=== PATIENT | female | born 1965 | race Caucasian/White ===

== ENCOUNTER 2020-11-04 10:06 | Day surgery (SDC) | payer OTHER ==
[~2020-11-04] VITALS: Ht 160 cm; Wt 119.7 kg
[~2020-11-04 10:06] MED LIST: DIVIGEL TOP; HYDROCHLOROTHIA25 M2 PO; SERTRALINE HCL50 MG PO; VITAMIN B122500 MC1 PO; VITAMIN D350 MC3 PO
[2020-11-04 10:47] VITALS: BP 133/73
--- NOTE | 2020-11-05 07:05 | EKG ---
[address] [place] [address] ELECTROCARDIOGRAM REPORT Name: JULIENNE DELEON Room #: DEP [facility]#: [id number] Admission: 11/04/20 Attend Phys: Estuardo Siegel MD Discharge: 11/04/20 Date of : 65 Report #: [id number] [facility] Test Date: 2020-11-04 Test Time: 10:45:12 Pat Name: JULIENNE DELEON Department: Room: 150 4 Gender: F Insurance Billing Clerk: WILLIAM : 1965 Requested By: Estuardo Siegel Order Number: [id number] : Rajesh Briseno Measurements Intervals [place] Rate: 82 P: 62 TX: 136 QRS: 15 QRSD: 95 T: -17 QT: 398 QTc: 465 Interpretive Statements Sinus rhythm Abnormal R-wave progression, early transition Borderline repolarization abnormality No previous ECG available for comparison Electronically Signed On 11-05-2020 7:05:24 CAR RENTAL DELIVER[employer] by Rajesh Briseno [email or web address] <ELECTRONICALLY SIGNED> By: Rajesh Briseno MD, [facility] 11/05/20 0705 1045 1045 Rajesh Briseno MD, FACC /EPI
--- NOTE | 2020-11-08 06:18 | O ---
[facility] [place] [address] OPERATIVE REPORT Name: JULIENNE DELEON Room #: DEP [facility]..#: [id number] Admission: 11/04/20 Attend Phys: Estuardo Siegel MD Discharge: 11/04/20 Date of : 65 Report #: [id number] THIS REPORT FOR: cc: Jhon Man MD, Elmer H. MD White, William L. MD ~ DATE OF SERVICE: 11/04/2020 PREOPERATIVE DIAGNOSIS: Tumor of left lower lid lateral canthus and cheek. POSTOPERATIVE DIAGNOSES: Tumor of left lower lid lateral canthus and cheek, pigmented basal cell carcinoma. PROCEDURES: Excision of lesion of left lower lid lateral canthus and cheek with frozen sections and myocutaneous flap repair of defect. SURGEON: Estuardo Siegel MD. SEBD TEACHER: None. ANESTHESIA: MAC. COMPLICATIONS: None. INDICATIONS FOR SURGERY: This pleasant 55-year-old woman has a pigmented nodular lesion in her lateral left lower lid extending on to her cheek and lateral canthus that appears to be a basal cell carcinoma. She presents today for excision of this lesion with frozen sections and subsequent repair of the ensuing defect. Informed consent was obtained to include but not limited to the potential risk for loss of vision, bleeding, infection, failure to improve the problem, the potential need for further surgery or treatment. DESCRIPTION OF PROCEDURE: The patient was taken to the operating room where 2% Xylocaine with epinephrine mixed with equal parts 0.75% Marcaine with Wydase was administered transcutaneously and transconjunctivally to the left lower lid lateral canthus and the cheek. The patient was subsequently prepped and draped in the usual sterile fashion. A fine tip skin marking pen was then utilized to outline the lesion including 1-2 mm of normal-appearing tissue. The incisions were then made with a 15 blade and subsequently completed with a Kirk scissor deep. They were directly overlying the facial nerve. The specimen was then oriented on drawing for the waiting pathologist as hemostasis was achieved in the field with diligent pinpoint monopolar cautery. The pathologist snap froze that tissue and found that the lesion was indeed a basal cell carcinoma, but that the margins were still positive. She felt that there was still tumor left medially. [address] [address] OPERATIVE REPORT Name: LEYDIVICKYJULIENNE Room #: DEP [facility]..#: [id number] Admission: 11/04/20 Attend Phys: Estuardo Siegel MD Discharge: 11/04/20 Date of : 65 Report #: [id number] An additional ellipse of tissue was taken excising the entire portion of the wound that she had indicated was positive, which was the medial aspect of the wound. The specimen was oriented for her on a drawing. Hemostasis was re-achieved. She snap froze that tissue and analyzed the new margins finding that now the margin was clear. A myocutaneous flap was then developed laterally to be rotated and medially to correct the defect. Hemostasis was then re-achieved. The flap was then advanced and secured with multiple interrupted 6-0 plain gut sutures. The wound was then cleaned and dressed with erythromycin ophthalmic ointment. The patient subsequently transported to the recovery area having tolerated the procedures well with no anesthetic or operative complications being noted. <ELECTRONICALLY SIGNED> By: Estuardo Siegel MD 11/08/20 0618 1255 1305 Estuardo Siegel MD /nt
--- NOTE | 2020-11-08 19:06 | PATH ---
[facility] [place] [address] PATHOLOGY RPT PROCEDURE Name: JULIENNE DELEON Room #: DEP [facility]..#: [id number] Admission: 11/04/20 Date of : 65 Discharge: 11/04/20 Report #: [id number] Path Case #: [id number] [facility] Accession Number: [id number] . 01 Material submitted: . PART A: lid - LEFT LOWER LID LESION FROZEN SECTION. Modifiers: left, lower PART B: lid - LEFT LOWER LID ADDITIONAL MEDIAL MARGIN FROZEN SECTION. Modifiers: left, lower, medial . 01 Clinician provided ICD-10: C44.1192 . 01 Clinical history: . LEFT LOWER LID LESION . 02 Frozen section diagnosis: . INTRAOPERATIVE CONSULTATION WITH FROZEN SECTION: (Dr. Harish Simmons) . A. Skin, "left lower lid lesion", biopsy: - Basal cell carcinoma; positive superior/medial margin. . The findings are conveyed to Dr. Siegel intraoperatively and a progress note is placed in the patient's chart. . B. Skin, "left lower lid biopsy, additional medial margin": - Negative for basal cell carcinoma. . The findings are conveyed to Dr. Siegel intraoperatively and a progress note is placed in the patient's chart. (PAM:prisca; 11/04/2020) . . FROZEN SECTION GROSS DESCRIPTION: A. Received fresh from the operating room, labeled, "Left lower lid lesion", is an elliptical piece of light rosales skin and conjunctiva which measures 1.5 x 0.4 cm and measures 0.[address] Siegel has oriented the specimen intraoperatively. The superior tip will be designated 12:00, the lateral margin 3:00, the inferior margin 6:00, and the medial margin 9:00. The 12-3-6:00 margin is inked in black ink, the 6-9:00 margin is inked in blue ink, and the 9-12:00 margin is inked in yellow ink. A fairly well-circumscribed dark sellers nodule is present in the central aspect of the skin ellipse. The tissue is serially sectioned into four pieces. The two middle pieces are frozen and submitted as cassette A1. The 12:00 and 6:00 tips are submitted as A2. . B. Received fresh from the operating room, labeled, "Left lower lid biopsy, additional medial margin", is an elongate light rosales strip of skin which measures 1.7 cm in length, 0.2 cm in width, and 0.2 cm in depth. [address] [address] PATHOLOGY RPT PROCEDURE Name: JULIENNE DELEON [id number] Admission: 11/04/20 Date of : 65 Discharge: 11/04/20 Report #: [id number] Path Case #: [id number] Dr. Siegel has oriented the specimen intraoperatively. The superior tip is inked in yellow ink, and the inferior tip is inked in blue ink. The piece of tissue is frozen and submitted in its entirely in cassette B1. (MLK:mml; 11/04/2020) . . Frozen section performed at [facility], [address] , [place] [address]. KIN/QL . 03 Diagnosis: A. Skin, "left lower lid lesion", excision: - BASAL CELL CARCINOMA, NODULAR TYPE; INVOLVING SUPERIOR MEDIAL MARGIN. - Please see comment. . B. Skin, "left lower lid lesion - additional medial margin", biopsy: - Negative for residual neoplasm. - Please see comment. (MLK:trena; 11/08/2020) S 11/08/2020 1832 Local . 03 Comment: The basal cell carcinoma present on the left lower lid has been completely excised. (MLK:trena; 11/08/2020) . 03 Electronically signed: . Harish Simmons MD, Pathologist NPI- [id number] . 01 Gross description: . A. PLEASE SEE FROZEN SECTION GROSS DESCRIPTION . B. PLEASE SEE FROZEN SECTION GROSS DESCRIPTION /QLM 11/05/2020 0935 Local . 03 Pathologist provided ICD-10: C44.1192 . 03 CPT . 653827, 131630, 128951, 124143 Specimen Comment: A courtesy copy of this report has been sent to [phone] Specimen Comment: Report sent to , / Performed at: 01 [facility] [address], [place], [place] [id number] [facility] [address] [place] [address] PATHOLOGY RPT PROCEDURE Name: JULIENNE DELEON Room #: DEP [facility]#: [id number] Admission: 11/04/20 Date of : 65 Discharge: 11/04/20 Report #: [id number] Path Case #: [id number] MD Juan J Strange MD Phone: [phone] Performed at: [address] [id number] MD Kerri Barker MD Phone: [phone] Performed at: [address] [id number] MD Carlos Enrique Smith MD Phone: [phone]
== END 2020-11-04 13:30 | disposition home or self-care (01) ==
LOC: OR 10:06 → TBA 10:06 → OR 10:12
PROVIDERS: ATTEND Ophthalmology
DX: C44.1192 Basal cell carcinoma of skin of left lower eyelid, including canthus (principal); I10 Essential (primary) hypertension; Z98.890 Other specified postprocedural states; Z79.899 Other long term (current) drug therapy; Z87.442 Personal history of urinary calculi; Z90.710 Acquired absence of both cervix and uterus; Z90.49 Acquired absence of other specified parts of digestive tract; Z87.891 Personal history of nicotine dependence
CPT/HCPCS: 50010; 50101; 50386; 50398; 51636; 56531; 62110; 62850; 70005